=== PATIENT | male | born 1955 | race Caucasian/White ===

== ENCOUNTER → 2016-09-10 | Outpatient (CLI) | payer OTHER ==
[~2016-09-10] MED LIST: CIPRO PO; FLOMAX0.4 MG PO; PRAVACHOL PO; PRILOSEC PO
--- NOTE | ~2016-09-10 | US82 ---
[facility] A Service of [facility] & [facility] RADIOLOGY TEXT RESULTS PATIENT: LAURE AGGARWAL LOCATION: CNIV : 59 UNIT #: [id number] AGE: [address]: Haresh Allison MD SEX: M ORDER DR: [id number] [facility] [address] [place], [place] [address] [id number] O MR#: [id number] Acc #: [id number] NAME: LAURE AGGARWAL. : 1955 SEX: M STUDY DATE/TIME: 09/10/2016 9:57 UNIT: CNIV ROOM: STUDY DESCRIPTION: US LE Art/Art Grafts Comp Arnie Attending Physician: Haresh Allison M.D. Referring Physician: Haresh Allison M.D. Ordering Physician: Haresh Allison M.D. Primary Care Physician: Regino Solorzano D.O. MEDICAL IMAGING REPORT This report is preliminary unless electronic signature is present EXAM Bilateral lower extremity graft scan DATE OF EXAMINATION 09/10/2016 HISTORY Bilateral lower extremity bypass graft surveillance. FINDINGS High-resolution B-mode imaging and color flow Doppler analysis was performed of the lower extremity arteries bilaterally. The right common femoral artery is patent with a peak systolic velocity of 183 cm/sec. The right profunda femoris artery is patent with a peak systolic velocity of 60 cm/sec. The superficial femoral artery is patent with a peak systolic velocity of 80 cm/sec in the proximal thigh, 150 cm/sec in the mid thigh, and 85 cm/sec in the distal thigh. The right popliteal artery is patent with a peak systolic velocity of 82 cm/sec. There is a bypass graft going from the popliteal artery to the posterior tibial artery which is patent. Peak systolic velocity of the bypass graft at the proximal anastomosis is 149 cm/sec, mid calf 118 cm/sec, distal calf 130 cm/sec, and distal anastomosis 125 cm/sec. The left common femoral artery is patent with a peak systolic velocity of 88 cm/sec. The deep femoral artery is patent with a peak systolic velocity of 106 cm/sec. The left superficial femoral artery is patent with a peak systolic velocity of 106 cm/sec in the proximal thigh, 99 cm/sec in the mid thigh, and 100 cm/sec in the distal thigh. The left popliteal artery is patent with a peak systolic velocity of 93 cm/sec. There is a bypass graft from the popliteal to the posterior tibial artery which is patent. Peak systolic velocity of the bypass graft is 139 cm/sec [facility] A Service of [facility] RADIOLOGY TEXT RESULTS PATIENT: LAURE AGGARWAL LOCATION: CNIV : 59 UNIT #: [id number] AGE: [address]: Haresh Allison MD SEX: M ORDER DR: at the proximal anastomosis, 84 cm/sec in the mid calf, 91 cm/sec in the distal calf, and 98 cm/sec at the distal anastomosis. Peak systolic velocity in the marshall runoff posterior tibial artery is 114 cm/sec. IMPRESSION Patent [id number] tibial bypass graft bilaterally. No focal stenosis is demonstrated on either side. Dictated by... Thom Mckinney M.D. THIS IS AN ELECTRONICALLY VERIFIED REPORT Thom Mckinney M.D. at 09/13/2016 8:09 AM TYRELL/addie TD: 09/10/2016 13:25 JOB #: [id number] MEDICAL IMAGING REPORT Page 1 of 1 COPY
== END | disposition home or self-care (01) ==
LOC: CNIV 09:10
DX: I73.9 Peripheral vascular disease, unspecified (principal); Z98.890 Other specified postprocedural states
CPT/HCPCS: 93925

== ENCOUNTER 2016-12-04 14:13 | Emergency (ER) | payer OTHER ==
[~2016-12-04] VITALS: Ht 182.9 cm; Wt 112.5 kg
--- NOTE | ~2016-12-04 | US85 ---
[facility] A Service of [facility] & [facility] RADIOLOGY TEXT RESULTS PATIENT: LAURE AGGARWAL LOCATION: CFTX : 59 UNIT #: [id number] AGE: [address]: Afua Iraheta APRN SEX: M ORDER DR: [id number] [facility] [address] [place], [place] [address] [id number] E MR#: [id number] Acc #: [id number] NAME: LAURE AGGARWAL : 1955 SEX: M STUDY DATE/TIME: 12/04/2016 16:35 UNIT: [facility] ROOM: STUDY DESCRIPTION: [facility] Attending Physician: Afua Iraheta A.P.R.N. Ordering Physician: Afua Iraheta A.P.R.N. Primary Care Physician: Regino Solorzano D.O. MEDICAL IMAGING REPORT This report is preliminary unless electronic signature is present EXAM Right lower extremity venous ultrasound. HISTORY Right leg pain and redness for one day. TECHNIQUE Venous ultrasound examination of the right lower extremity was performed using grayscale, spectral Doppler and color flow Doppler imaging. FINDINGS The examination is negative. There is no evidence of right lower extremity deep venous thrombus from the groin to the lower calf. Visualized greater saphenous vein is also patent. IMPRESSION Negative examination. No evidence of right lower extremity DVT. Dictated by... Francis Champagne M.D. THIS IS AN ELECTRONICALLY VERIFIED REPORT Francis Champagne M.D. at 12/05/2016 6:06 PM MYRTLE/giuliano TD: 12/04/2016 22:38 JOB #: [id number] MEDICAL IMAGING REPORT Page 1 of 1 COPY
[2016-12-04 16:03] LABS: BASOPHIL# 0.1 X10e3 (0-0.3); BASOPHIL% 0.7 % (0-2.5); EOSINOPHIL# 0.1 X10e3 (0-0.7); EOSINOPHIL% 1.3 % (0.0-7.0); HEMATOCRIT 40.3 % (38.0-50.0); HEMOGLOBIN 13.2 gm/dL (13.0-16.0); LYMPHOCYTE# 1.8 X10e3 (1.0-3.5); LYMPHOCYTE% 21.5 % (17.0-45.0); MEAN CORPUSCULAR HEMOGLOBIN 28.4 PG (28-34); MEAN CORPUSCULAR HGB CONC 32.6 g/dL (30-36); MEAN PLATELET VOLUME 9.4 FL (6.5-11.5); MONOCYTE# 0.8 X10e3 (0-1.0); MONOCYTE% 9.7 % (3.0-12.0); NEUTROPHIL# 5.6 X10e3 (1.5-7.1); NEUTROPHIL% 66.8 % (40-75); PLATELET COUNT 227 X10e3 (140-420); RED BLOOD COUNT 4.63 X10e (3.90-5.60); RED CELL DISTRIBUTION WIDTH 16.8 % (11.0-15.5); WHITE BLOOD COUNT 8.3 X10e3 (4.0-10.5)
[2016-12-04 16:08] LABS: DIFF IND NO
[2016-12-04 16:15] LABS: PARTIAL THROMBOPLASTIN TIME 35.7 SECONDS (23.5-31.3); PROTHROMBIN TIME (PATIENT) 21.5 SECONDS (10.0-11.7)
[2016-12-04 16:42] LABS: BUN/CREATININE RATIO 15.45; CALCIUM SERUM 8.6 mg/dL (8.4-10.2); CREATININE SERUM 1.1 mg/dL (0.6-1.4); GLOM FILT RATE Estimated 73.1 mL/min (>60); POTASSIUM 3.9 mmol/L (3.5-5.1)
== END 2016-12-04 17:28 | disposition home or self-care (01) ==
LOC: CFTX 14:13 → CED 14:13 → CFTX 16:24
PROVIDERS: Nurse Practitioner
DX: L03.115 Cellulitis of right lower limb (principal); I25.2 Old myocardial infarction; Z79.01 Long term (current) use of anticoagulants
CPT/HCPCS: 36415; 80048; 85025; 85610; 85730; 93971; 99284